=== PATIENT | female | born 1940 | race Caucasian/White ===

== ENCOUNTER 2018-03-05 07:39 | Outpatient (CLI) | payer MEDICARE, BC ==
--- NOTE | 2018-03-05 10:12 | CT ---
ABDOMEN CT WITH CONTRAST: PELVIS CT WITH CONTRAST: HISTORY: Two months of left upper quadrant pain. Nausea. Decreased appetite. Eight pound weight loss. COMPARISON: 03/20/2016 FINDINGS: ABDOMEN: The lung bases are clear. Dependent atelectatic changes and minimal blebs in the left lung base are again noted. Normal heart size. No significant pericardial fluid. The descending thoracic aorta and abdominal ao rta have a normal caliber. No periaortic fat stranding. CT evidence of cholelithiasis without evidence of cholecystitis. The portal vein is patent. The spleen, pancreas, and adrenal glands are unremarkable. The right kidney is absent. There is appropriate enhancement of the left kidney. There is mild prom inence of the distal left ureter without associated periureteral fat stranding. There is questionabl e hyperdense material in the distal portion of the left ureter, incompletely evaluated. No gastrohepatic, retrocrural, or periportal lymphadenopathy. Redemonstration of multiple hypodensities in the hepatic parenchyma. Simple cysts are favored. No e nhancing masses in the liver. Small hiatal hernia. Gastric mucosa, duodenum, and multiple normal caliber small bowel loops are shruti ntified. The ileocecal junction is normal. An appendix is not appreciated. [id number], no infl ammation of the cecal apex. No evidence of colonic obstruction. Occasional colonic diverticulum. N o diverticulitis. There does appear to be some nonspecific mucosal prominence of the rectum. Findings may be due to in adequate distention. Correlate clinically. PELVIS: Hysterectomy changes. Left adnexal structures are unremarkable. The urinary bladder is dec ompressed, limiting evaluation. No pelvic mass, lymphadenopathy, or free air. No free fluid. No lytic or blastic lesions in the osseous structures. Lumbar fusion hardware is noted. IMPRESSION: 1. Cholelithiasis without evidence of cholecystitis. 2. Multiple hepatic cysts are redemonstrated. 3. Prominent rectal muscoa likely due to inadequate distention. 4. Mild prominence of the distal left ureter with subtle hyperdense material in the left ureter, jus t proximal to the left ureterovesical junction. Urological consultation is recommended. CODE T POS: [facility]
== END 2018-03-05 07:40 | disposition home or self-care (01) ==
LOC: SCSCT 07:39
PROVIDERS: ATTEND Internal Medicine Gastroenterology
DX: R10.12 Left upper quadrant pain (principal); K80.20 Calculus of gallbladder without cholecystitis without obstruction; K76.89 Other specified diseases of liver
CPT/HCPCS: 74177; 82565

== ENCOUNTER 2018-03-18 09:56 | Outpatient (CLI) | payer MEDICARE, BC ==
[2018-03-18 12:07] LABS: Hemoglobin 14.4 g/dL (12.0-16.0); Mean Corpuscular HGB CONC 34.9 g/dL (32.0-36.0); Mean Corpuscular Hemoglobin 33.3 pg (27.0-31.0); Mean Corpuscular Volume 95.3 fL (78.0-98.0); Mean Platelet Volume 8.2 fL (7.4-10.4); Platelet Count 275 thou/uL (130-400); RBC Distribution Width 11.7 % (11.5-14.5); Red Blood Cell (RBC) Count 4.34 mill/uL (4.20-5.40)
[2018-03-18 12:08] LABS: Bilirubin Negative (Negative); Blood, Urine Negative (Negative); Clarity CLEAR (Clear); Glucose, Urine (Dipstick) Negative (Negative); Leukocyte Negative (Negative); Nitrite Negative (Negative); Protein, Urine (Dipstick) Negative (Neg-Trace); Specific Gravity, Urine 1.006 (1.002-1.036); Urobilinogen 0.2 mg/dL (0.2-1.0)
[2018-03-18 12:10] LABS: Bacteria/HPF None Seen HPF (None Seen); Hyaline Casts/LPF 0-3 HYALINE CAST LPF (0-3 Hyaline); RBC/HPF 0-3 HPF (0-3); Squamous Epithelial None Seen HPF (0-3); WBC/HPF None Seen HPF (0-3)
[2018-03-18 12:13] LABS: INR-International Normal Ratio 1.1; PTT 29.9 SEC (22.9-36.1); Prothrombin Time 14.1 SEC (12.0-14.7)
[2018-03-18 12:22] LABS: Anion Gap 17 mmol/L (10-20); BUN (Urea Nitrogen) 27 mg/dL (9.8-20.1); Calc. Creatinine Clearance 0 mL/min (70-130); Calcium 10.2 mg/dL (7.8-10.44); Carbon Dioxide 22 mmol/L (23-31); Chloride 108 mmol/L (98-107); Estimated GFR-MDRD 54; Glucose 118 mg/dL (83-110); Potassium 4.5 mmol/L (3.5-5.1); Sodium 142 mmol/L (136-145)
--- NOTE | 2018-03-19 21:59 | EKG ---
Test Reason : Blood Pressure : / mmHG Vent. Rate : 052 BPM Atrial Rate : 052 BPM P-R Int : 166 ms QRS Dur : 082 ms QT Int : 458 ms P-R-T Axes : 054 015 062 degrees QTc Int : 425 ms Sinus bradycardia Low voltage QRS Borderline ECG No previous ECGs available Confirmed by Violeta RAM ([id number]) on 03/19/2018 9:59:11 PM Referred By: KAYLA Confirmed By:Violeta RAM
== END 2018-03-18 09:57 | disposition home or self-care (01) ==
LOC: LABBT 09:56
PROVIDERS: ATTEND Urology
DX: Z01.818 Encounter for other preprocedural examination (principal)
CPT/HCPCS: 80048; 81001; 85027; 85610; 85730; 87086; 93005; 93010

== ENCOUNTER 2018-03-26 05:52 | Day surgery (SDC) | payer MEDICARE, BC ==
[2018-03-18 10:31] VITALS: BMI 28.3
[2018-03-26] MEDS ORDERED: Iothalamate Meglumine 60% 50 ML VIAL FS ONE (06:42)
[2018-03-26] MEDS ORDERED: Fentanyl 100 MCG/2 ML VIAL ONE (06:47)
[2018-03-26] MEDS ORDERED: Levofloxacin 500 mg/D5W 100 ml Premix Bag ONE (07:21)
[2018-03-26] MEDS ORDERED: Oxybutynin 5 MG TAB ONE (08:30)
[2018-03-26] MEDS ORDERED: Phenazopyridine HCl 97.5 MG TABLET ONE (08:31)
--- NOTE | 2018-03-26 13:44 | OP ---
DATE OF PROCEDURE: 03/26/2018 REFERRING PROVIDER: Elias Murcia MD PRIMARY CARE PHYSICIAN: Jamison Gallardo. PREOPERATIVE DIAGNOSES: 1. A 77-year-old female, G2, P2 with vague left upper quadrant abdominal discomfort of unclear etiology. 2. Rule out distal left ureteral mass, questionable on CT. 3. 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 POSTOPERATIVE DIAGNOSES: 1. A 77-year-old female with G2, P2 with vague left upper quadrant abdominal discomfort of unclear etiology. 2. Rule out distal left ureteral mass, questionable on CT. 3. 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 PROCEDURES PERFORMED: Cystoscopy, left retrograde pyelogram, balloon dilatation of the left distal intramural ureter, diagnostic ureteroscopy, 6 x 22 double-J stent placement with distal tail in situ. ANESTHESIA: General. COMPLICATIONS: None apparent. DISPOSITION: To recovery room in stable condition. SPECIMENS: None. INTRAOPERATIVE FINDINGS: 1. Moderate cystocele grade 3 to 4 deviating to trigone. 2. No evidence of bladder lesion. 3. Solitary left kidney, orthotopic position of the left UO. 4. Retrograde pyelogram without evidence of hydronephrosis or filling defects. 5. Diagnostic ureteroscopy, negative for intraluminal ureteral lesion of concern. INDICATIONS FOR PROCEDURE AND HISTORY: Ms. Gentile is a 77-year-old female with history of vague left upper quadrant abdominal discomfort of unclear etiology followed by Dr. Murcia. The patient was referred to me for evaluation of questionable left distal ureteral mass, indeterminate on CT. CT with IV contrast was performed on March 05 demonstrating prominence of the left distal ureter without evidence of hydronephrosis or periureteral stranding. There was a questionable hyperdense material in the distal portion of the left ureter incompletely evaluated. She presents with no evidence of microscopic hematuria or gross hematuria. Her urine FISH cytology voided has been negative. She presents today for diagnostic evaluation. Risks and complications of the procedure were reviewed with her in detail including, but not limited to, bleeding, pain, infection, injury to adjacent organs, urosepsis, stricture formation, possible secondary procedure. All questions were answered to her satisfaction and she desired to proceed without reservation. DESCRIPTION OF PROCEDURE: After an informed consent was signed, the patient was taken to the operating room and placed in a dorsal lithotomy position with the genital area prepped and draped in the usual surgical sterile fashion. Bilateral CHECO hose SCDs and broad-spectrum antibiotics were provided. We performed a cystoscopy using a 21-Bermudian cystoscope. I did have to place some vaginal packing in her vaginal vault as there was significant deviation of the trigone. The left UO was able to be identified with reduction of cystocele. There was no evidence of intraluminal bladder mass. There was no obvious evidence of right UO. She has congenital absence of the right kidney. The left UO appeared to be somewhat small in caliber; however, not stenotic. I was able to intubate a 5-Bermudian open-ended catheter without significant issues. No retrograde pyelogram was performed. Although there was some prominence of the distal ureter just proximal to the intramural portion, there was no evidence of filling defect, hydronephrosis. The opacified collecting system was without evidence of hydronephrosis. At this time, a 0.035 Sensor wire was able to be passed into the left upper pole collecting system. Using [employer] 4 cm 12-Bermudian balloon dilator, we gently dilated the intramural portion of the ureter. Pressure was held for approximately 1 minute. Subsequently, I was able to pass a rigid ureteroscope without significant issues. Diagnostic ureteroscopy demonstrated no evidence of ureteral stricture, no evidence of intraluminal ureteral mass. I was able to pass the scope to the proximal ureter, distal to the UPJ without significant issues. There was no lesion of concern. At this time, a 6 x 22 double-J ureteral stent was passed over the guidewire. This guidewire was subsequently removed. The patient tolerated the procedure well. The bladder was emptied. All packing from the vaginal vault was removed. All instruments were accounted for. The patient was transported to the recovery room in stable condition. She will follow up with me next for stent pull under local. She was discharged with ciprofloxacin for 3 days, one dose to be taken prior to her cysto stent pull. Short course of [place] 5/325 #20 one p.o. q.6 to 8 hours p.r.n., VESIcare 5 mg #10 one p.o. daily, Azo p.r.n., Colace p.r.n. was provided. Job ID: [id number]
--- NOTE | 2018-03-28 14:24 | RAD ---
LEFT RETROGRADE PYELOGRAM: Date: 03/26/18 HISTORY: Ureteral mass. FINDINGS/IMPRESSION: Nine fluoroscopic images during a left-sided retrograde pyelogram demonstrate opacification of the le ft pelvicaliceal system and ureters, and placement of a left ureteral stent. There are degenerative changes of the spine and postop changes at L4-L5-S1 levels with metallic hardw are in place. POS: [facility]
== END 2018-03-26 13:00 | disposition home or self-care (01) ==
LOC: SDC 05:52
PROVIDERS: ATTEND Urology
PROC: 0T778DZ Dilation of Left Ureter with Intraluminal Device, Via Natural or Artificial Opening Endoscopic (ICD-10-PCS; principal; 2018-03-26)
DX: N81.11 Cystocele, midline (principal); Q60.0 Renal agenesis, unilateral; I10 Essential (primary) hypertension; K21.9 Gastro-esophageal reflux disease without esophagitis; E78.00 Pure hypercholesterolemia, unspecified; Z79.83 Long term (current) use of bisphosphonates; Z79.899 Other long term (current) drug therapy
CPT/HCPCS: 51798; 52332; 74420; C1758; C1769; J1956; J3010; Q9961

== ENCOUNTER 2018-06-10 07:45 | Outpatient (CLI) | payer MEDICARE, BC ==
[2018-06-10 08:14] LABS: Bilirubin Negative (Negative); Blood, Urine Negative (Negative); Clarity CLEAR (Clear); Glucose, Urine (Dipstick) Negative (Negative); Leukocyte Small (Negative); Nitrite Negative (Negative); Protein, Urine (Dipstick) Negative (Neg-Trace); Urobilinogen 0.2 mg/dL (0.2-1.0)
[2018-06-10 08:17] LABS: Bacteria/HPF None Seen HPF (None Seen); Hyaline Casts/LPF 0-3 HYALINE CAST LPF (0-3 Hyaline); Pathc Cast-AUWi Flag 0.14 (0-2.49); RBC/HPF 0-3 HPF (0-3); Squamous Epithelial 0-3 HPF (0-3); WBC/HPF 0-3 HPF (0-3)
[2018-06-10 08:22] LABS: Urine Culture Reflex Yes Yes
[2018-06-10 08:31] LABS: Anion Gap 14 mmol/L (10-20); BUN (Urea Nitrogen) 24 mg/dL (9.8-20.1); Calc. Creatinine Clearance 0 mL/min (70-130); Calcium 10.2 mg/dL (7.8-10.44); Carbon Dioxide 21 mmol/L (23-31); Chloride 106 mmol/L (98-107); Estimated GFR-MDRD 44; Glucose 139 mg/dL (83-110); Potassium 4.2 mmol/L (3.5-5.1); Sodium 137 mmol/L (136-145)
[2018-06-10] MEDS ORDERED: Iopamidol 370 76% 100 ML VIAL ONE (09:59)
--- NOTE | 2018-06-10 11:15 | CT ---
CT IVP: History: 77-year-old female with left sided abdominal pain since January. Patient has a solitary left kidney. Technique: Multiple contiguous axial images were obtained in a CT of the abdomen and pelvis with IV c ontrast. Before the administration of contrast, a cooling system operator IVP radiograph was performed. Subsequent IVP images were obtained. FINDINGS: No calcifications are seen projecting over either kidney on the cooling system operator radiograph. Hardware is seen in the lumbar spine. There are numerous hypodensities in the liver which represent cysts. There is a large gallstone in th e gallbladder. No biliary dilatation is seen. The right kidney is absent. The left kidney, adrenal gl ands, spleen, and pancreas are unremarkable. No free air, free fluid, or stranding changes are seen in the abdomen or pelvis. The reproductive org ans are unremarkable. The large and small bowel are unremarkable. The appendix is not definitely seen . No abdominal or pelvic lymphadenopathy are present. The visualized inferior thorax and abdominal wall soft tissues are unremarkable. IVP images show normal excretion of the contrast from the left kidney. No abnormality is seen in the left ureter. The urinary bladder is unremarkable. No significant post void residual is present. IMPRESSION: 1. Solitary left kidney without focal abnormality or hydronephrosis. 2. Hepatic cysts. 3. Cholelithiasis. POS: [facility]
== END 2018-06-10 07:46 | disposition home or self-care (01) ==
LOC: RAD 07:45
PROVIDERS: ATTEND Urology
DX: R10.12 Left upper quadrant pain (principal); Q60.0 Renal agenesis, unilateral; R35.0 Frequency of micturition; K76.89 Other specified diseases of liver; K80.20 Calculus of gallbladder without cholecystitis without obstruction
CPT/HCPCS: 36415; 74178; 74410; 80048; 81001; 87086